=== PATIENT | male | born 1950 ===

== ENCOUNTER 2020-11-21 19:49 | Outpatient (REF) | payer BC, SELFPAY ==
[2020-11-23 15:45] LABS: COVID-19 RT-PCR UVMMC Result Negative (Negative)
== END 2020-11-21 19:50 | disposition home or self-care (01) ==
LOC: NCHCN 19:49
PROVIDERS: Visit Provider Internal Medicine
DX: Z20.822 Contact with and (suspected) exposure to COVID-19 (principal)
CPT/HCPCS: U0003